=== PATIENT | female | born 1930 | race Asian ===

== ENCOUNTER 2016-10-07 09:15 | Observation (INO) | payer MEDICARE ==
[~2016-10-07] VITALS: Ht 157.5 cm; Wt 39.0 kg
[~2016-10-07 09:15] MED LIST: AMLO5TAB4 PO; ASPI-1035 PO; MECL-109 PO
[2016-10-07 10:22] LABS: BASOPHILS % 0.8 % (0.0-2.0); EOSINOPHILS % 0.4 % (0.0-5.0); HEMATOCRIT. 39.3 % (36.0-48.0); HEMOGLOBIN. 13.2 g/dL (12.0-16.0); LYMPHOCYTES % 16.6 % (20.0-50.0); MEAN CORPUSCULAR HEMOGLOBIN 31.9 pg (28.0-32.0); MEAN CORPUSCULAR HGB CONC 33.5 g/dL (31.0-37.0); MEAN CORPUSCULAR VOLUME 95.3 fL (81.0-99.0); MEAN PLATELET VOLUME 7.2 fl (7.4-10.4); MONOCYTES % 4.9 % (2.0-8.0); NEUTROPHILS % 77.3 % (40.0-76.0); PLATELET 197 x1000/uL (130-400); RED BLOOD CELL COUNT 4.13 mill/uL (4.2-5.4); RED CELL DISTRIBUTION WIDTH 15.8 % (11.6-14.6); WHITE BLOOD COUNT 6.8 x1000/uL (4.5-11.0)
[2016-10-07 10:32] LABS: ANION GAP 14; CARBON DIOXIDE 24 mEq/L (21-32); CHLORIDE 102 mEq/L (98-107); INDEX HEMOLYSI 1 (1-3); INDEX ICTERIC 1 (1-4); INDEX LIPEMIC 1 (1-3); UREA NITROGEN BLOOD 16 mg/dL (7-21)
[2016-10-07 10:40] LABS: NT PRO B-TYPE NATRIURETIC PEP 570 pg/mL (5-125); TROPONIN I 0.11 ng/mL (0.00-0.04); eGFR > 60 mL/min (>60)
[2016-10-07 11:49] LABS: *AMPHETAMINES SCREEN URINE NEGATIVE (NEGATIVE); *BARBITURATES SCREEN URINE NEGATIVE (NEGATIVE); *BENZODIAZEPINES SCREEN URINE NEGATIVE (NEGATIVE); *COCAINE SCREEN URINE NEGATIVE (NEGATIVE); CANNABINOID URINE SCREEN NEGATIVE (NEGATIVE); ECSTASY MDMA SCREEN URINE NEGATIVE (NEGATIVE); METHADONE URINE SCREEN NEGATIVE (NEGATIVE); OPIATES URINE SCREEN NEGATIVE (NEGATIVE); PHENCYCLIDINE URINE SCREEN NEGATIVE (NEGATIVE)
[2016-10-07] MEDS ORDERED: DOCUSATE SODIUM 100MG CAPSULE PO PRN (14:00)
[2016-10-07] MEDS ORDERED: GUAIFENESIN 200MG/10ML SUGAR FREE UDC PO PRN (14:00)
[2016-10-07] MEDS ORDERED: CLONIDINE 0.1MG TABLET PO PRN ×2 (14:00→16:25)
[2016-10-07] MEDS ORDERED: ONDANSETRON HCL 4MG/2ML VIAL IV PRN (14:00)
[2016-10-07 15:21] LABS: CREATINE KINASE MB FRACTION 0.6 ng/mL (0.5-3.6); TROPONIN I 0.07 ng/mL (0.00-0.04)
[2016-10-07 16:00] VITALS: BP 165/95
[2016-10-07] MEDS ORDERED: CLONIDINE 0.2MG TABLET PO PRN (16:30)
[2016-10-07] MEDS: ACETAMINOPHEN 325MG TABLET PO PRN (16:37)
[2016-10-07] MEDS: ENOXAPARIN 30MG/0.3ML SYR SUBCUT SCH (16:38)
[2016-10-07 20:00] VITALS: BP 120/66
[2016-10-07] MEDS: LOSARTAN POTASSIUM 25 MG TABLET PO SCH (21:16)
[2016-10-08] VITALS: BP 120/77
[2016-10-08 04:00] VITALS: BP 140/77
[2016-10-08 06:59] LABS: CHLORIDE 102 mEq/L (98-107); INDEX HEMOLYSI 1 (1-3); INDEX ICTERIC 1 (1-4); INDEX LIPEMIC 1 (1-3)
[2016-10-08 07:18] LABS: ALANINE AMINOTRANSFERASE 15 IU/L (13-61); ALBUMIN 3.1 g/dL (3.4-5.0); ANION GAP 15; CALCIUM 8.9 mg/dL (8.5-10.1); CARBON DIOXIDE 21 mEq/L (21-32); CREATINE KINASE 20 IU/L (26-192); CREATINE KINASE MB FRACTION < 0.5 ng/mL (0.5-3.6); HDL CHOLESTEROL 65 mg/dL (40-59); LDL CHOLESTEROL 107 mg/dL (5-100); MAGNESIUM 1.9 mg/dL (1.8-2.4); NT PRO B-TYPE NATRIURETIC PEP 523 pg/mL (5-125); T4 FREE 1.69 ng/dL (0.76-1.46); TRIGLYCERIDE 91 mg/dL (0-150); TROPONIN I 0.05 ng/mL (0.00-0.04); UREA NITROGEN BLOOD 16 mg/dL (7-21); eGFR > 60 mL/min (>60)
[2016-10-08 07:47] LABS: BASOPHILS % 0.8 % (0.0-2.0); EOSINOPHILS % 1.7 % (0.0-5.0); HEMATOCRIT. 36.1 % (36.0-48.0); HEMOGLOBIN. 12.1 g/dL (12.0-16.0); LYMPHOCYTES % 24.2 % (20.0-50.0); MEAN CORPUSCULAR HEMOGLOBIN 32.3 pg (28.0-32.0); MEAN CORPUSCULAR HGB CONC 33.4 g/dL (31.0-37.0); MEAN CORPUSCULAR VOLUME 96.8 fL (81.0-99.0); MEAN PLATELET VOLUME 8.1 fl (7.4-10.4); MONOCYTES % 7.5 % (2.0-8.0); NEUTROPHILS % 65.8 % (40.0-76.0); PLATELET 159 x1000/uL (130-400); RED BLOOD CELL COUNT 3.73 mill/uL (4.2-5.4); WHITE BLOOD COUNT 4.9 x1000/uL (4.5-11.0)
[2016-10-08 08:00] VITALS: BP 140/76
[2016-10-08] MEDS: ACETAMINOPHEN 325MG TABLET PO PRN ×2 (08:09→15:08)
[2016-10-08] MEDS: ASPIRIN 81MG EC TABLET PO SCH (10:25)
[2016-10-08] MEDS: LOSARTAN POTASSIUM 25 MG TABLET PO SCH ×2 (10:25→21:00)
[2016-10-08] MEDS: ENOXAPARIN 30MG/0.3ML SYR SUBCUT SCH ×2 (10:25→16:00)
[2016-10-08] MEDS: AMLODIPINE 10MG TABLET PO SCH (10:25)
[2016-10-08 12:00] VITALS: BP 110/46
[2016-10-08] MEDS ORDERED: NA PHOS,M-B/NA PHOS,DI-BA ENEMA 118ML PR PRN (15:00)
[2016-10-08 16:00] VITALS: BP_SYST 105; BP_SYST 94; BP_DIAS 54; BP_DIAS 65
[2016-10-08 20:00] VITALS: BP_SYST 111; BP_SYST 118; BP_SYST 120; BP_DIAS 66; BP_DIAS 69; BP_DIAS 71
[2016-10-09] VITALS (7 sets, daily range): BP systolic 81–146; BP diastolic 48–82
[2016-10-09 05:40] LABS: BASOPHILS % 0.7 % (0.0-2.0); EOSINOPHILS % 3.4 % (0.0-5.0); HEMATOCRIT. 36.8 % (36.0-48.0); HEMOGLOBIN. 12.4 g/dL (12.0-16.0); LYMPHOCYTES % 33.1 % (20.0-50.0); MEAN CORPUSCULAR HGB CONC 33.7 g/dL (31.0-37.0); MEAN CORPUSCULAR VOLUME 94.8 fL (81.0-99.0); MEAN PLATELET VOLUME 7.7 fl (7.4-10.4); MONOCYTES % 11.1 % (2.0-8.0); NEUTROPHILS % 51.7 % (40.0-76.0); PLATELET 159 x1000/uL (130-400); RED BLOOD CELL COUNT 3.88 mill/uL (4.2-5.4); RED CELL DISTRIBUTION WIDTH 15.9 % (11.6-14.6); WHITE BLOOD COUNT 4.6 x1000/uL (4.5-11.0)
[2016-10-09 06:29] LABS: ALANINE AMINOTRANSFERASE 14 IU/L (13-61); ALBUMIN 3.1 g/dL (3.4-5.0); ANION GAP 14; CALCIUM 8.4 mg/dL (8.5-10.1); CARBON DIOXIDE 23 mEq/L (21-32); CHLORIDE 103 mEq/L (98-107); INDEX HEMOLYSI 1 (1-3); INDEX ICTERIC 1 (1-4); INDEX LIPEMIC 1 (1-3); MAGNESIUM 1.8 mg/dL (1.8-2.4); UREA NITROGEN BLOOD 16 mg/dL (7-21); eGFR > 60 mL/min (>60)
[2016-10-09] MEDS: LOSARTAN POTASSIUM 25 MG TABLET PO SCH ×2 (09:00→22:11)
[2016-10-09] MEDS: ASPIRIN 81MG EC TABLET PO SCH (09:40)
[2016-10-09] MEDS: AMLODIPINE 10MG TABLET PO SCH (09:40)
[2016-10-09] MEDS: ENOXAPARIN 30MG/0.3ML SYR SUBCUT SCH (16:00)
== END 2016-10-10 00:17 ==
LOC: ER 09:36 → 5WST 12:07 → INTOOBSV 12:07
PROVIDERS: ADMIT Internal Medicine; ATTEND Internal Medicine
DX: R53.1 Weakness (principal); E03.9 Hypothyroidism, unspecified; E86.0 Dehydration; F03.90 Unspecified dementia, unspecified severity, without behavioral disturbance, psychotic disturbance, mood disturbance, and anxiety; I21.4 Non-ST elevation (NSTEMI) myocardial infarction; I10 Essential (primary) hypertension; R79.89 Other specified abnormal findings of blood chemistry; S52.92XD Unspecified fracture of left forearm, subsequent encounter for closed fracture with routine healing; Z98.890 Other specified postprocedural states; Z90.710 Acquired absence of both cervix and uterus; W19.XXXD Unspecified fall, subsequent encounter
CPT/HCPCS: 36415; 71010; 80048; 80053; 80061; 80305; 82550; 82553; 83735; 83880; 84439; 84443; 84484; 85025; 85379; 85610; 87086; 93005; 93306; 93970; 96372; 97116; 97162; 99291; G0378; J1650; J7030

== ENCOUNTER 2017-04-15 18:20 | Inpatient (IN) | payer MEDICARE ==
[~2017-04-15] VITALS: Ht 152.4 cm; Wt 45.4 kg
[~2017-04-15 18:20] MED LIST changes: -ASPI-1035 PO; +ASPI-1159 PO
[2017-04-15] MEDS ORDERED: KETOROLAC 15MG/ML VIAL IV ONE (19:15)
[2017-04-15 19:50] LABS: HEMATOCRIT. 39.8 % (36.0-48.0); HEMOGLOBIN. 13.4 g/dL (12.0-16.0); MEAN CORPUSCULAR HEMOGLOBIN 30.6 pg (28.0-32.0); MEAN CORPUSCULAR VOLUME 90.8 fL (81.0-99.0); MEAN PLATELET VOLUME 7.1 fl (7.4-10.4); PLATELET 197 x1000/uL (130-400); RED BLOOD CELL COUNT 4.39 mill/uL (4.2-5.4); RED CELL DISTRIBUTION WIDTH 13.8 % (11.6-14.6)
[2017-04-15 19:56] LABS: CHLORIDE 100 mEq/L (98-107)
[2017-04-15 20:03] LABS: CARBON DIOXIDE 23 mEq/L (21-32)
[2017-04-15 20:07] LABS: TROPONIN I < 0.02 ng/mL (0.00-0.04)
[2017-04-15 20:17] LABS: PROTHROMBIN TIME 10.7 sec (9.4-11.6)
[2017-04-15 20:32] LABS: PLATELET ESTIMATE NORMAL
[2017-04-15 22:42] LABS: CLARITY URINE CLEAR (CLEAR); COLOR URINE YELLOW (YELLOW); GLUCOSE URINE NEGATIVE (NEGATIVE); KETONES URINE NEGATIVE (NEGATIVE); LEUKOCYTE ESTERASE URINE NEGATIVE (NEGATIVE); NITRITE URINE NEGATIVE (NEGATIVE); OCCULT BLOOD URINE NEGATIVE (NEGATIVE); PROTEIN URINE TRACE (NEGATIVE); SPECIFIC GRAVITY URINE 1.018 (1.005-1.030); UROBILINOGEN URINE 0.2 E.U./dL (0.2-1.0)
[2017-04-15 22:54] LABS: *AMPHETAMINES SCREEN URINE NEGATIVE (NEGATIVE); *BARBITURATES SCREEN URINE NEGATIVE (NEGATIVE); *BENZODIAZEPINES SCREEN URINE NEGATIVE (NEGATIVE); *COCAINE SCREEN URINE NEGATIVE (NEGATIVE); CANNABINOID URINE SCREEN NEGATIVE (NEGATIVE); METHADONE URINE SCREEN NEGATIVE (NEGATIVE); OPIATES URINE SCREEN NEGATIVE (NEGATIVE); PHENCYCLIDINE URINE SCREEN NEGATIVE (NEGATIVE)
[2017-04-16] VITALS (8 sets, daily range): BP systolic 116–177; BP diastolic 54–85
[2017-04-16] MEDS ORDERED: CLONIDINE 0.1MG TABLET PO PRN (01:15)
[2017-04-16] MEDS ORDERED: ACETAMINOPHEN 325MG TABLET PO PRN (01:15)
[2017-04-16] MEDS: HYDROCODONE/ACETAMINOPHEN 5/325MG TABLET PO PRN ×2 (02:04→08:23)
[2017-04-16] MEDS: CEFTRIAXONE 1 G PREMIX 50 ML IV SCH (03:42)
[2017-04-16 05:55] LABS: BASOPHILS % 0.5 % (0.0-2.0); HEMATOCRIT. 36.2 % (36.0-48.0); HEMOGLOBIN. 12.3 g/dL (12.0-16.0); LYMPHOCYTES % 12.8 % (20.0-50.0); MEAN CORPUSCULAR HEMOGLOBIN 30.9 pg (28.0-32.0); MEAN CORPUSCULAR VOLUME 91.3 fL (81.0-99.0); MEAN PLATELET VOLUME 7.2 fl (7.4-10.4); MONOCYTES % 7.8 % (2.0-8.0); NEUTROPHILS % 78.9 % (40.0-76.0); PLATELET 190 x1000/uL (130-400); RED BLOOD CELL COUNT 3.96 mill/uL (4.2-5.4); RED CELL DISTRIBUTION WIDTH 13.5 % (11.6-14.6)
[2017-04-16 06:42] LABS: CARBON DIOXIDE 23 mEq/L (21-32); CHLORIDE 100 mEq/L (98-107); T4 FREE 0.83 ng/dL (0.76-1.46)
[2017-04-17] VITALS: BP 153/73
[2017-04-17] MEDS: CEFTRIAXONE 1 G PREMIX 50 ML IV SCH (02:48)
[2017-04-17 04:00] VITALS: BP 149/56
[2017-04-17 08:00] VITALS: BP 158/60
[2017-04-17] MEDS: HYDROCODONE/ACETAMINOPHEN 5/325MG TABLET PO PRN (09:52)
[2017-04-17 12:00] VITALS: BP 139/63
[2017-04-17 16:05] VITALS: BP 123/61
[2017-04-17 16:50] VITALS: BP 123/61
== END 2017-04-17 17:30 | disposition home health service (06) | DRG 563 ==
LOC: ER 18:43 → ENRESERV 22:46 → CANRESERV 22:54 → ENRESERV 22:54 → 8WST 23:35 → EDBEDREQTM 23:39 → EDBEDREQ 23:39 → 8WST 04-16 02:35
PROVIDERS: ADMIT Internal Medicine; ATTEND Internal Medicine
DX: S93.402A Sprain of unspecified ligament of left ankle, initial encounter (principal); I10 Essential (primary) hypertension; W18.39XA Other fall on same level, initial encounter; E03.9 Hypothyroidism, unspecified; Z82.49 Family history of ischemic heart disease and other diseases of the circulatory system; Z90.710 Acquired absence of both cervix and uterus; Y93.89 Activity, other specified; Y92.511 Restaurant or cafe as the place of occurrence of the external cause; Y99.8 Other external cause status; Z91.040 Latex allergy status; Z79.82 Long term (current) use of aspirin; Z79.899 Other long term (current) drug therapy
CPT/HCPCS: 36415; 51702; 70450; 71010; 73552; 80048; 80053; 80305; 81001; 83036; 83735; 83880; 84439; 84443; 84484; 85025; 85610; 85651; 87086; 93005; 96374; 97162; 99285; J0696; J1885; J7050; A4315

== ENCOUNTER 2018-09-03 17:57 | Inpatient (IN) | payer MEDICARE ==
[~2018-09-03] VITALS: Ht 152.4 cm; Wt 45.4 kg
[2018-09-03] MEDS ORDERED: SODIUM CHLORIDE 0.9% 1,000 ML IV ONE (19:45)
[2018-09-03 21:22] LABS: CLARITY URINE CLEAR (CLEAR); COLOR URINE YELLOW (YELLOW); KETONES URINE 2+ (NEGATIVE); LEUKOCYTE ESTERASE URINE NEGATIVE (NEGATIVE); NITRITE URINE NEGATIVE (NEGATIVE); OCCULT BLOOD URINE 1+ (NEGATIVE); PH URINE 6.5 (4.5-8.0); PROTEIN URINE TRACE (NEGATIVE); SPECIFIC GRAVITY URINE 1.017 (1.005-1.030); UROBILINOGEN URINE 0.2 E.U./dL (0.2-1.0)
[2018-09-03 22:37] LABS: BASOPHILS % 0.3 % (0.0-2.0); EOSINOPHILS % 0.1 % (0.0-5.0); HEMATOCRIT. 40.9 % (36.0-48.0); HEMOGLOBIN. 13.8 g/dL (12.0-16.0); LYMPHOCYTES % 11.6 % (20.0-50.0); MEAN CORPUSCULAR HEMOGLOBIN 31.5 pg (28.0-32.0); MEAN CORPUSCULAR VOLUME 93.4 fL (81.0-99.0); MEAN PLATELET VOLUME 7.3 fl (7.4-10.4); MONOCYTES % 6.2 % (2.0-8.0); NEUTROPHILS % 81.8 % (40.0-76.0); PLATELET 177 x1000/uL (130-400); RED BLOOD CELL COUNT 4.38 mill/uL (4.2-5.4); RED CELL DISTRIBUTION WIDTH 13.5 % (11.6-14.6)
[2018-09-03 22:43] LABS: CHLORIDE 109 mEq/L (98-107)
[2018-09-03 22:48] LABS: ETHANOL BLOOD < 10 mg/dL
[2018-09-03 22:52] LABS: CREATINE KINASE 453 IU/L (26-192)
[2018-09-03 22:55] LABS: CREATINE KINASE MB FRACTION 16.9 ng/mL (0.5-3.6)
[2018-09-03] MEDS ORDERED: POTASSIUM CHLORIDE 20MEQ TABLET SR PO ONE (23:15)
[2018-09-03] MEDS ORDERED: KCL 10MEQ/50ML PREMIX 50 ML IV ONE (23:15)
[2018-09-04] MEDS ORDERED: POTASSIUM CHLORIDE 20MEQ TABLET SR PO SCH (12:00)
[2018-09-04 12:07] LABS: CHLORIDE 108 mEq/L (98-107)
[2018-09-05] VITALS: BP_SYST 148; BP_SYST 150; BP_DIAS 76; BP_DIAS 77
[2018-09-05] MEDS ORDERED: VITA1CAP PO (01:11)
[2018-09-05 04:00] VITALS: BP 128/68
[2018-09-05 06:59] LABS: HEMATOCRIT 42.2 % (36.0-48.0); HEMOGLOBIN 14.4 g/dL (12.0-16.0); MEAN CORPUSCULAR HEMOGLOBIN 31.7 pg (28.0-32.0); MEAN CORPUSCULAR VOLUME 92.6 fL (81.0-99.0); PLATELET 176 x1000/uL (130-400); RED BLOOD CELL COUNT 4.56 mill/uL (4.2-5.4); RED CELL DISTRIBUTION WIDTH 13.5 % (11.6-14.6)
[2018-09-05 08:00] VITALS: BP 147/76
[2018-09-05 08:04] LABS: CHLORIDE 107 mEq/L (98-107)
[2018-09-05 08:16] LABS: LDL CHOLESTEROL 111 mg/dL (5-100)
[2018-09-05 08:17] LABS: CREATINE KINASE 213 IU/L (26-192); HDL CHOLESTEROL 57 mg/dL (40-59)
[2018-09-05 08:19] LABS: CREATINE KINASE MB FRACTION 7.9 ng/mL (0.5-3.6)
[2018-09-05] MEDS: DOCUSATE SODIUM 100MG CAPSULE PO SCH (09:01)
[2018-09-05] MEDS: ASPIRIN 81MG TABLET PO SCH (09:02)
[2018-09-05] MEDS: AMLODIPINE 5MG TABLET PO SCH (09:02)
[2018-09-05] MEDS: ENOXAPARIN 30MG/0.3ML SYR SUBCUT SCH (09:03)
[2018-09-05] MEDS ORDERED: POTASSIUM CHLORIDE 20MEQ TABLET SR PO SCH (10:45)
[2018-09-05] MEDS ORDERED: HYDROCODONE/ACETAMINOPHEN 5/325MG TABLET PO SCH (10:45)
[2018-09-05 12:00] VITALS: BP 135/68
[2018-09-05] MEDS ORDERED: HYDRALAZINE 20MG/ML VIAL IV PRN (14:00)
[2018-09-05] MEDS ORDERED: DIPHENHYDRAMINE 50MG/ML VIAL IV PRN (14:00)
[2018-09-05] MEDS ORDERED: ACETAMINOPHEN 650MG SUPP PR PRN (14:00)
[2018-09-05] MEDS ORDERED: DOCUSATE SODIUM 100MG CAPSULE PO PRN (14:00)
[2018-09-05] MEDS ORDERED: CEFTRIAXONE 1 G PREMIX 50 ML IV SCH (14:00)
[2018-09-05] MEDS ORDERED: HYDROCODONE/ACETAMINOPHEN 5/325MG TABLET PO PRN (14:00)
[2018-09-05 14:16] LABS: CREATINE KINASE MB FRACTION 5.8 ng/mL (0.5-3.6)
[2018-09-05 16:16] LABS: T4 FREE 0.95 ng/dL (0.76-1.46)
[2018-09-05 16:17] LABS: CREATINE KINASE MB FRACTION 5.2 ng/mL (0.5-3.6)
[2018-09-05] MEDS: SODIUM CHLORIDE 0.45% 1,000 ML IV SCH (16:42)
[2018-09-05] MEDS: CEFTRIAXONE 1,000 MG in DEXTROSE 5% WATER 50 ML IV SCH (17:12)
[2018-09-05 20:00] VITALS: BP 119/69
[2018-09-05 23:48] VITALS: BP 138/77
[2018-09-06] MEDS: SODIUM CHLORIDE 0.45% 1,000 ML IV SCH ×2 (03:59→13:09)
[2018-09-06] MEDS: ACETAMINOPHEN 325MG TABLET PO PRN ×2 (03:59→12:03)
[2018-09-06 04:03] VITALS: BP 115/63
[2018-09-06 06:59] LABS: CHLORIDE 109 mEq/L (98-107)
[2018-09-06 07:13] LABS: CREATINE KINASE 88 IU/L (26-192)
[2018-09-06 07:17] LABS: CREATINE KINASE MB FRACTION 3.1 ng/mL (0.5-3.6)
[2018-09-06 07:31] LABS: HEMATOCRIT 38.8 % (36.0-48.0); HEMOGLOBIN 12.9 g/dL (12.0-16.0); MEAN CORPUSCULAR HEMOGLOBIN 31.2 pg (28.0-32.0); MEAN CORPUSCULAR VOLUME 93.7 fL (81.0-99.0); PLATELET 160 x1000/uL (130-400); RED BLOOD CELL COUNT 4.14 mill/uL (4.2-5.4); RED CELL DISTRIBUTION WIDTH 13.7 % (11.6-14.6)
[2018-09-06 08:00] VITALS: BP 123/58
[2018-09-06] MEDS: AMLODIPINE 5MG TABLET PO SCH (08:52)
[2018-09-06] MEDS: ASPIRIN 81MG TABLET PO SCH (08:53)
[2018-09-06] MEDS: DOCUSATE SODIUM 100MG CAPSULE PO SCH (08:53)
[2018-09-06] MEDS: ENOXAPARIN 30MG/0.3ML SYR SUBCUT SCH (08:54)
[2018-09-06 11:08] VITALS: BP 111/62
[2018-09-06] MEDS: CEFTRIAXONE 1,000 MG in DEXTROSE 5% WATER 50 ML IV SCH (13:09)
[2018-09-06] MEDS ORDERED: LEVOTHYROXINE SODIUM 50MCG TABLET PO NR (13:45)
[2018-09-06 15:36] VITALS: BP 117/55
[2018-09-06 18:20] VITALS: BP_SYST 117; BP_SYST 133; BP_DIAS 55; BP_DIAS 73
[2018-09-06 20:00] VITALS: BP 133/73
[2018-09-07 00:03] VITALS: BP 129/69
[2018-09-07] MEDS: ACETAMINOPHEN 325MG TABLET PO PRN (01:11)
[2018-09-07] MEDS ORDERED: LEVOTHYROXINE SODIUM 50MCG TABLET PO SCH (07:20)
[2018-09-07] MEDS ORDERED: INFLUENZA VIRUS VACCINE(AFLURIA) 0.5ML SYR IM ONE (08:00)
== END 2018-09-07 01:50 | DRG 280 ==
LOC: ER 18:19 → 6WST 09-04 00:50 → EDBEDREQ 09-04 00:59 → EDBEDREQTM 09-04 00:59 → EDBEDREQDT 09-04 00:59 → ENRESERV 09-04 20:28
PROVIDERS: ADMIT Internal Medicine; ATTEND Internal Medicine
DX: I21.4 Non-ST elevation (NSTEMI) myocardial infarction (principal); G92 Toxic encephalopathy; N39.0 Urinary tract infection, site not specified; M62.82 Rhabdomyolysis; M48.56XA Collapsed vertebra, not elsewhere classified, lumbar region, initial encounter for fracture; E86.0 Dehydration; E03.9 Hypothyroidism, unspecified; R26.9 Unspecified abnormalities of gait and mobility; E87.6 Hypokalemia; I11.9 Hypertensive heart disease without heart failure; R62.7 Adult failure to thrive; Z90.710 Acquired absence of both cervix and uterus; Z79.82 Long term (current) use of aspirin; Z79.899 Other long term (current) drug therapy; Z91.040 Latex allergy status
CPT/HCPCS: 36415; 71045; 72192; 73522; 73700; 80048; 80061; 80307; 80329; 82550; 82553; 83605; 84439; 84443; 84481; 84484; 85027; 93005; 96361; 96365; 97162; 97166; 97530; 97535; 99284; 99285; J0696; J1650; J3480; J7030; J7060

== ENCOUNTER 2018-10-26 20:28 | Inpatient (IN) | payer MEDICARE ==
[~2018-10-26] VITALS: Ht 152.4 cm; Wt 35.4 kg
[~2018-10-26 20:28] MED LIST changes: +VITA1CAP PO
[2018-10-26] MEDS ORDERED: SODIUM CHLORIDE 0.9% 1,000 ML IV ONE (20:55)
[2018-10-26 21:35] LABS: CLARITY URINE CLOUDY (CLEAR); COLOR URINE YELLOW (YELLOW); KETONES URINE 1+ (NEGATIVE); LEUKOCYTE ESTERASE URINE TRACE (NEGATIVE); NITRITE URINE NEGATIVE (NEGATIVE); OCCULT BLOOD URINE TRACE (NEGATIVE); PROTEIN URINE NEGATIVE (NEGATIVE); SPECIFIC GRAVITY URINE 1.015 (1.005-1.030); UROBILINOGEN URINE 0.2 E.U./dL (0.2-1.0)
[2018-10-26 22:07] LABS: BASOPHILS % 0.3 % (0.0-2.0); HEMATOCRIT. 44.3 % (36.0-48.0); HEMOGLOBIN. 14.6 g/dL (12.0-16.0); MEAN CORPUSCULAR HEMOGLOBIN 31.4 pg (28.0-32.0); MEAN CORPUSCULAR VOLUME 95.1 fL (81.0-99.0); MEAN PLATELET VOLUME 7.5 fl (7.4-10.4); MONOCYTES % 5.2 % (2.0-8.0); NEUTROPHILS % 82.5 % (40.0-76.0); PLATELET 173 x1000/uL (130-400); RED BLOOD CELL COUNT 4.66 mill/uL (4.2-5.4); RED CELL DISTRIBUTION WIDTH 14.6 % (11.6-14.6)
[2018-10-26 22:11] LABS: CHLORIDE 106 mEq/L (98-107)
[2018-10-26 22:22] LABS: PROTHROMBIN TIME 10.7 sec (9.6-11.0)
[2018-10-27 06:18] VITALS: BP 155/67
[2018-10-27 08:00] VITALS: BP 141/60
[2018-10-27] MEDS ORDERED: ONDANSETRON HCL 4MG/2ML INJ IV PRN (08:45)
[2018-10-27] MEDS ORDERED: CLONIDINE 0.1MG TABLET PO PRN (08:45)
[2018-10-27] MEDS: ACETAMINOPHEN 325MG TABLET PO PRN (09:38)
[2018-10-27] MEDS: ASPIRIN 81MG EC TABLET PO SCH (09:38)
[2018-10-27] MEDS: AMLODIPINE 5MG TABLET PO SCH (09:39)
[2018-10-27] MEDS: ENOXAPARIN 30MG/0.3ML SYR SUBCUT SCH (09:45)
[2018-10-27 12:00] VITALS: BP 128/68
[2018-10-27 16:00] VITALS: BP 133/74
[2018-10-27 16:49] LABS: CREATINE KINASE MB FRACTION 5.3 ng/mL (0.5-3.6)
[2018-10-27] MEDS: CEFTRIAXONE 1 G PREMIX 50 ML IV SCH (18:51)
[2018-10-27 20:00] VITALS: BP 135/61
[2018-10-28] VITALS: BP 155/76
[2018-10-28 00:05] LABS: CREATINE KINASE MB FRACTION 3.1 ng/mL (0.5-3.6)
[2018-10-28 04:00] VITALS: BP 133/64
[2018-10-28 06:03] LABS: BASOPHILS % 0.5 % (0.0-2.0); EOSINOPHILS % 1.5 % (0.0-5.0); HEMATOCRIT. 42.7 % (36.0-48.0); HEMOGLOBIN. 14.3 g/dL (12.0-16.0); LYMPHOCYTES % 25.1 % (20.0-50.0); MEAN CORPUSCULAR HEMOGLOBIN 31.6 pg (28.0-32.0); MEAN CORPUSCULAR VOLUME 94.5 fL (81.0-99.0); MEAN PLATELET VOLUME 7.7 fl (7.4-10.4); MONOCYTES % 8.3 % (2.0-8.0); NEUTROPHILS % 64.6 % (40.0-76.0); PLATELET 161 x1000/uL (130-400); RED BLOOD CELL COUNT 4.53 mill/uL (4.2-5.4); RED CELL DISTRIBUTION WIDTH 14.5 % (11.6-14.6)
[2018-10-28 06:38] LABS: CHLORIDE 107 mEq/L (98-107)
[2018-10-28 08:00] VITALS: BP 134/68
[2018-10-28] MEDS: ASPIRIN 81MG EC TABLET PO SCH (09:10)
[2018-10-28] MEDS: AMLODIPINE 5MG TABLET PO SCH (09:11)
[2018-10-28] MEDS: ENOXAPARIN 30MG/0.3ML SYR SUBCUT SCH (10:08)
[2018-10-28 12:00] VITALS: BP 119/71
[2018-10-28] MEDS: FAMOTIDINE 20MG TABLET PO SCH (13:00)
[2018-10-28] MEDS: ACETAMINOPHEN 325MG TABLET PO PRN ×2 (13:00→19:09)
[2018-10-28 16:00] VITALS: BP 102/65
[2018-10-28] MEDS: CEFTRIAXONE 1 G PREMIX 50 ML IV SCH (18:08)
[2018-10-28 20:00] VITALS: BP 109/69
[2018-10-29] VITALS (7 sets, daily range): BP systolic 115–142; BP diastolic 58–77
[2018-10-29] MEDS: FAMOTIDINE 20MG TABLET PO SCH (09:10)
[2018-10-29] MEDS: ASPIRIN 81MG EC TABLET PO SCH (09:10)
[2018-10-29] MEDS: AMLODIPINE 5MG TABLET PO SCH (09:10)
[2018-10-29] MEDS: ENOXAPARIN 30MG/0.3ML SYR SUBCUT SCH (09:13)
[2018-10-29] MEDS: ACETAMINOPHEN 325MG TABLET PO PRN ×2 (10:53→21:49)
[2018-10-29] MEDS: CEFTRIAXONE 1 G PREMIX 50 ML IV SCH (17:33)
[2018-10-30] VITALS: BP 108/50
[2018-10-30 04:00] VITALS: BP 116/69
[2018-10-30 08:00] VITALS: BP 122/62
[2018-10-30] MEDS: ASPIRIN 81MG EC TABLET PO SCH (08:45)
[2018-10-30] MEDS: ENOXAPARIN 30MG/0.3ML SYR SUBCUT SCH (08:46)
[2018-10-30] MEDS: AMLODIPINE 5MG TABLET PO SCH (08:46)
[2018-10-30] MEDS: FAMOTIDINE 20MG TABLET PO SCH (08:46)
[2018-10-30 12:00] VITALS: BP 125/61
[2018-10-30 16:00] VITALS: BP 118/69
[2018-10-30] MEDS: CEFTRIAXONE 1 G PREMIX 50 ML IV SCH (18:11)
[2018-10-30 20:00] VITALS: BP 158/83
[2018-10-30] MEDS ORDERED: LORAZEPAM 2MG/ML CPJ IV NR (22:30)
[2018-10-31] VITALS: BP 144/74
[2018-10-31 04:00] VITALS: BP 152/74
[2018-10-31 08:00] VITALS: BP 162/76
[2018-10-31] MEDS: ENOXAPARIN 30MG/0.3ML SYR SUBCUT SCH (08:44)
[2018-10-31] MEDS: ASPIRIN 81MG EC TABLET PO SCH (08:45)
[2018-10-31] MEDS: AMLODIPINE 5MG TABLET PO SCH (08:45)
[2018-10-31] MEDS: FAMOTIDINE 20MG TABLET PO SCH (08:45)
[2018-10-31] MEDS: ACETAMINOPHEN 325MG TABLET PO PRN (15:50)
[2018-10-31] MEDS: CEFTRIAXONE 1 G PREMIX 50 ML IV SCH (18:57)
[2018-10-31 20:00] VITALS: BP 148/88
[2018-11-01] VITALS (7 sets, daily range): BP systolic 119–154; BP diastolic 64–74
[2018-11-01] MEDS: ACETAMINOPHEN 325MG TABLET PO PRN ×4 (01:37→13:36)
[2018-11-01] MEDS: ASPIRIN 81MG EC TABLET PO SCH (08:45)
[2018-11-01] MEDS: FAMOTIDINE 20MG TABLET PO SCH (08:45)
[2018-11-01] MEDS: AMLODIPINE 5MG TABLET PO SCH (08:46)
[2018-11-01] MEDS: ENOXAPARIN 30MG/0.3ML SYR SUBCUT SCH (08:48)
[2018-11-01] MEDS: CEFTRIAXONE 1 G PREMIX 50 ML IV SCH (18:00)
== END 2018-11-01 22:10 | disposition home or self-care (01) | DRG 690 ==
LOC: ER 20:28 → 7WST 23:52 → EDBEDREQ 23:56 → ENRESERV 10-27 03:16
PROVIDERS: ADMIT Internal Medicine; ATTEND Internal Medicine
DX: N39.0 Urinary tract infection, site not specified (principal); R22.9 Localized swelling, mass and lump, unspecified; I10 Essential (primary) hypertension; E03.9 Hypothyroidism, unspecified; R29.6 Repeated falls; F03.90 Unspecified dementia, unspecified severity, without behavioral disturbance, psychotic disturbance, mood disturbance, and anxiety; W01.0XXA Fall on same level from slipping, tripping and stumbling without subsequent striking against object, initial encounter; Y93.89 Activity, other specified; Y92.098 Other place in other non-institutional residence as the place of occurrence of the external cause; Y99.8 Other external cause status; Z90.710 Acquired absence of both cervix and uterus; Z79.899 Other long term (current) drug therapy; Z79.82 Long term (current) use of aspirin; Z91.040 Latex allergy status
CPT/HCPCS: 36415; 51702; 70486; 71045; 72170; 80048; 82550; 82553; 84484; 93005; 96360; 97116; 97162; 99285; C1893; J0696; J1650; J2060; J7030; J7050; A4315

== ENCOUNTER 2018-12-01 17:27 | Inpatient (IN) | payer MEDICARE ==
[~2018-12-01] VITALS: Ht 152.4 cm; Wt 49.9 kg
[~2018-12-01 17:27] MED LIST changes: -ASPI-1159 PO; +ASPI-1393 PO
[2018-12-01] MEDS ORDERED: SODIUM CHLORIDE 0.9% 1,000 ML IV ONE (17:50)
[2018-12-01] MEDS ORDERED: MORPHINE SULFATE 2 MG/ML CPJ (NOT FOR IM USE) IV ONE ×2 (18:00→22:30)
[2018-12-01] MEDS ORDERED: ONDANSETRON HCL 4MG/2ML INJ IV ONE (18:00)
[2018-12-01 18:30] LABS: BASOPHILS % 0.3 % (0.0-2.0); HEMATOCRIT. 45.2 % (36.0-48.0); HEMOGLOBIN. 15.2 g/dL (12.0-16.0); LYMPHOCYTES % 15.3 % (20.0-50.0); MEAN CORPUSCULAR HEMOGLOBIN 31.6 pg (28.0-32.0); MEAN PLATELET VOLUME 7.8 fl (7.4-10.4); MONOCYTES % 6.3 % (2.0-8.0); NEUTROPHILS % 78.1 % (40.0-76.0); PLATELET 121 x1000/uL (130-400); RED CELL DISTRIBUTION WIDTH 14.5 % (11.6-14.6)
[2018-12-01 18:33] LABS: CHLORIDE 105 mEq/L (98-107); PROTHROMBIN TIME 10.3 sec (9.6-11.0)
[2018-12-01] MEDS ORDERED: ACETAMINOPHEN 500MG TABLET PO ONE (22:30)
[2018-12-02 04:00] VITALS: BP 158/71
[2018-12-02] MEDS ORDERED: POTASSIUM CHLORIDE 20MEQ TABLET SR PO SCH (04:30)
[2018-12-02] MEDS: HYDROCODONE/ACETAMINOPHEN 5/325MG TABLET PO PRN ×3 (05:10→23:05)
[2018-12-02 06:17] VITALS: BP 130/51
[2018-12-02 08:00] VITALS: BP 123/60
[2018-12-02] MEDS ORDERED: ENOXAPARIN 40MG/0.4ML SYR SUBCUT SCH (09:00)
[2018-12-02 11:54] VITALS: BP 112/54
[2018-12-02 13:09] LABS: HEMATOCRIT 42.7 % (36.0-48.0); MEAN CORPUSCULAR HEMOGLOBIN 31.5 pg (28.0-32.0); MEAN CORPUSCULAR VOLUME 95.8 fL (81.0-99.0); PLATELET 125 x1000/uL (130-400); RED BLOOD CELL COUNT 4.46 mill/uL (4.2-5.4); RED CELL DISTRIBUTION WIDTH 14.3 % (11.6-14.6)
[2018-12-02 15:41] LABS: CHLORIDE 104 mEq/L (98-107)
[2018-12-02 15:48] LABS: LDL CHOLESTEROL 94 mg/dL (5-100)
[2018-12-02 15:49] LABS: HDL CHOLESTEROL 59 mg/dL (40-59)
[2018-12-02 15:50] LABS: T4 FREE 1.33 ng/dL (0.76-1.46)
[2018-12-02 16:00] VITALS: BP 124/86
[2018-12-02] MEDS ORDERED: ONDANSETRON 4MG ODT PO PRN (16:00)
[2018-12-02] MEDS ORDERED: DIPHENHYDRAMINE 50MG/ML VIAL IV PRN (16:00)
[2018-12-02] MEDS ORDERED: CLONIDINE 0.1MG TABLET PO PRN (16:00)
[2018-12-02] MEDS: SODIUM CHLORIDE 0.45% 1,000 ML IV SCH (16:15)
[2018-12-02] MEDS: LEVOTHYROXINE SODIUM 50MCG TABLET PO SCH (17:07)
[2018-12-02] MEDS: DOCUSATE SODIUM 100MG CAPSULE PO SCH (17:08)
[2018-12-02 17:40] LABS: CLARITY URINE CLEAR (CLEAR); COLOR URINE YELLOW (YELLOW); KETONES URINE 1+ (NEGATIVE); LEUKOCYTE ESTERASE URINE NEGATIVE (NEGATIVE); NITRITE URINE NEGATIVE (NEGATIVE); OCCULT BLOOD URINE NEGATIVE (NEGATIVE); PROTEIN URINE NEGATIVE (NEGATIVE); SPECIFIC GRAVITY URINE 1.022 (1.005-1.030)
[2018-12-02 17:50] LABS: CANNABINOID URINE SCREEN NEGATIVE (NEGATIVE)
[2018-12-02 17:51] LABS: *AMPHETAMINES SCREEN URINE NEGATIVE (NEGATIVE); *BARBITURATES SCREEN URINE NEGATIVE (NEGATIVE); *BENZODIAZEPINES SCREEN URINE NEGATIVE (NEGATIVE); *COCAINE SCREEN URINE NEGATIVE (NEGATIVE); METHADONE URINE SCREEN NEGATIVE (NEGATIVE); OPIATES URINE SCREEN PRESUMTIVE POSITIVE (NEGATIVE)
[2018-12-02 17:52] LABS: PHENCYCLIDINE URINE SCREEN NEGATIVE (NEGATIVE)
[2018-12-02 20:00] VITALS: BP 147/62
[2018-12-03 00:05] VITALS: BP 147/62
[2018-12-03 04:00] VITALS: BP 138/61
[2018-12-03] MEDS: LEVOTHYROXINE SODIUM 50MCG TABLET PO SCH (06:22)
[2018-12-03 07:17] LABS: CHLORIDE 104 mEq/L (98-107)
[2018-12-03 07:34] LABS: HEMATOCRIT 41.6 % (36.0-48.0); HEMOGLOBIN 14.2 g/dL (12.0-16.0); MEAN CORPUSCULAR HEMOGLOBIN 31.9 pg (28.0-32.0); MEAN CORPUSCULAR VOLUME 93.7 fL (81.0-99.0); PLATELET 131 x1000/uL (130-400); RED BLOOD CELL COUNT 4.44 mill/uL (4.2-5.4)
[2018-12-03 08:00] VITALS: BP 154/69
[2018-12-03] MEDS: DOCUSATE SODIUM 100MG CAPSULE PO SCH ×2 (08:15→16:11)
[2018-12-03] MEDS: HYDROCODONE/ACETAMINOPHEN 5/325MG TABLET PO PRN ×2 (10:01→20:52)
[2018-12-03 12:00] VITALS: BP 138/75
[2018-12-03] MEDS: SODIUM CHLORIDE 0.45% 1,000 ML IV SCH (12:15)
[2018-12-03 16:00] VITALS: BP 134/69
[2018-12-03 20:00] VITALS: BP 144/86
[2018-12-03] MEDS ORDERED: LORAZEPAM 2MG/ML CPJ IV PRN (20:30)
[2018-12-04] VITALS: BP_SYST 125
[2018-12-04 04:00] VITALS: BP 124/73
[2018-12-04] MEDS: LEVOTHYROXINE SODIUM 50MCG TABLET PO SCH (06:48)
[2018-12-04 08:00] VITALS: BP 129/76
[2018-12-04] MEDS: SODIUM CHLORIDE 0.45% 1,000 ML IV SCH (08:15)
[2018-12-04] MEDS: DOCUSATE SODIUM 100MG CAPSULE PO SCH ×2 (08:55→16:55)
[2018-12-04 12:00] VITALS: BP 150/73
[2018-12-04] MEDS ORDERED: LORAZEPAM 1MG TABLET PO PRN (14:00)
[2018-12-04] MEDS ORDERED: DIPHENHYDRAMINE 12.5MG/5ML UDC PO PRN (14:00)
[2018-12-04 16:00] VITALS: BP 126/86
[2018-12-04 20:00] VITALS: BP 144/86
[2018-12-05] VITALS (7 sets, daily range): BP systolic 109–153; BP diastolic 66–81
[2018-12-05] MEDS: HYDROCODONE/ACETAMINOPHEN 5/325MG TABLET PO PRN ×2 (05:27→16:23)
[2018-12-05 06:43] LABS: HEMOGLOBIN 15.8 g/dL (12.0-16.0); MEAN CORPUSCULAR HEMOGLOBIN 31.5 pg (28.0-32.0); MEAN CORPUSCULAR VOLUME 93.6 fL (81.0-99.0); PLATELET 147 x1000/uL (130-400); RED BLOOD CELL COUNT 5.02 mill/uL (4.2-5.4); RED CELL DISTRIBUTION WIDTH 14.2 % (11.6-14.6)
[2018-12-05] MEDS: LEVOTHYROXINE SODIUM 50MCG TABLET PO SCH (06:48)
[2018-12-05 07:22] LABS: CHLORIDE 103 mEq/L (98-107)
[2018-12-05] MEDS: DOCUSATE SODIUM 100MG CAPSULE PO SCH ×2 (08:40→17:00)
== END 2018-12-05 17:50 | DRG 552 ==
LOC: ER 17:27 → 6EST 22:18 → EDBEDREQTM 22:20 → EDBEDREQ 22:20 → EDBEDREQSVC 22:20 → ENRESERV 12-02 02:23
PROVIDERS: ADMIT Internal Medicine; ATTEND Internal Medicine
DX: M54.2 Cervicalgia (principal); I35.0 Nonrheumatic aortic (valve) stenosis; R53.1 Weakness; R26.9 Unspecified abnormalities of gait and mobility; E03.9 Hypothyroidism, unspecified; W18.39XA Other fall on same level, initial encounter; I10 Essential (primary) hypertension; D69.6 Thrombocytopenia, unspecified; F03.90 Unspecified dementia, unspecified severity, without behavioral disturbance, psychotic disturbance, mood disturbance, and anxiety; Z90.710 Acquired absence of both cervix and uterus; Z91.040 Latex allergy status; Y93.89 Activity, other specified; Y92.89 Other specified places as the place of occurrence of the external cause; Y99.8 Other external cause status
CPT/HCPCS: 36415; 72131; 72170; 74018; 80048; 80061; 80305; 83036; 84439; 84443; 85027; 93005; 93970; 96374; 97162; 99285; C1893; J1650; J2270; J2405; J7030